=== PATIENT | female | born 1990 | race Two or more races ===

== ENCOUNTER 2019-11-22 11:51 | Emergency (ER) | payer BC, OTHER ==
[~2019-11-22] VITALS: Ht 180.3 cm; Wt 95.7 kg
[2019-11-22 14:43] LABS: Basophils # (auto) 0 10 ^3/uL (0-0.2); Basophils % (auto) 0.4 % (0.0-2.0); Eosinophils # (auto) 0.2 10 ^3/uL (0-0.8); Eosinophils % (auto) 2.1 % (0.0-7.0); Hematocrit 44.5 % (36.0-46.0); Hemoglobin 14.6 g/dL (12.2-16.2); Lymphocytes # (auto) 2.5 10 ^3/uL (0.4-5.4); Lymphocytes % (auto) 25.2 % (10.0-50.0); Mean Corpuscular Hemoglobin 27.7 pg (28.0-32.0); Mean Corpuscular Hgb Conc. 32.8 g/dL (32.0-36.0); Mean Corpuscular Volume 84.6 fL (80.0-100.0); Monocytes # (auto) 0.6 10 ^3/uL (0-1.3); Monocytes % (auto) 6.3 % (0.0-12.0); Neutrophils # (auto) 6.5 10 ^3/uL (1.6-8.6); Platelet Count (auto) 373 10^3/uL (140-450); Red Blood Cells 5.27 10^6/uL (4.0-5.20); White Blood Cell 9.9 10^3/uL (4.4-10.8)
[2019-11-22] MEDS ORDERED: NALOXONE HCL 0.4 MG/ML VIAL IV ONE (14:45)
[2019-11-22 14:57] LABS: Albumin 3.6 g/dL (3.4-5.0); Calcium 8.7 mg/dL (8.5-10.1); Potassium 3.9 mmol/L (3.5-5.1)
[2019-11-22 15:02] LABS: BUN/Creatinine Ratio 8.5; Bilirubin, Total 0.5 mg/dL (0.2-1.0); Total Protein 7.4 g/dL (6.4-8.2)
[2019-11-22] MEDS ORDERED: SODIUM CHLORIDE 0.9% 1,000 ML IVB ONE (15:04)
[2019-11-22] MEDS ORDERED: PROMETHAZINE HCL 25 MG/ML 1ML IV PRN (15:15)
[2019-11-22 15:58] LABS: INR 1.05 (0.9-1.15)
[2019-11-22 19:49] VITALS: BP 102/60
== END 2019-11-22 22:13 | disposition home or self-care (01) ==
LOC: ER 11:51
DX: T78.40XA Allergy, unspecified, initial encounter (principal); R11.2 Nausea with vomiting, unspecified; N64.4 Mastodynia
CPT/HCPCS: 36415; 71045; 76642; 80053; 83735; 84702; 85025; 85610; 85730; 96374; 99285; J2550

== ENCOUNTER 2020-01-18 18:40 | Emergency (ER) | payer OTHER ==
[~2020-01-18] VITALS: Ht 157.5 cm; Wt 95.7 kg
[2020-01-18 19:00] VITALS: BP 120/76
[2020-01-18] MEDS ORDERED: SODIUM CHLORIDE 0.9% 1,000 ML IV ONE (19:15)
[2020-01-18] MEDS ORDERED: KETOROLAC TROMETH 30 MG/ML 1ML VIAL IV ONE (19:15)
[2020-01-18 20:47] LABS: Urine Amorphous Crystal FEW /hpf (None Seen); Urine Bacteria FEW /hpf (None Seen); Urine Blood Negative /uL (Negative); Urine Mucus FEW (None Seen); Urine Specific Gravity 1.022 (1.001-1.035); Urine WBC 16 /hpf (0 - 5); Urine WBC Clumps PRESENT /hpf (None Seen)
== END 2020-01-18 22:14 | disposition still patient (30) ==
LOC: ER 18:41
DX: U07.1 COVID-19 (principal)
CPT/HCPCS: 71045; 81001; 81025; 96361; 96374; 99284; J1885; J7030; 96360

== ENCOUNTER 2020-10-15 21:40 | Inpatient (IN) | payer MEDICAID, OTHER ==
[~2020-10-15] VITALS: Ht 30.5 cm; Wt 91.0 kg
[2020-10-16] MEDS ORDERED: DOXYCYCLINE 100 MG TAB/CAP PO ONE
[2020-10-16] MEDS ORDERED: SODIUM CHLORIDE 0.9% 1,000 ML IV ONE
[2020-10-16] MEDS ORDERED: ACETAMINOPHEN 325 MG TAB PO ONE
[2020-10-16] MEDS ORDERED: cefTRIAXone 1GM/50ML D5W 50 ML IV ONE
[2020-10-16 00:24] LABS: Basophils # (auto) 0 10 ^3/uL (0-0.2); Basophils % (auto) 0.2 % (0.0-2.0); Eosinophils # (auto) 0 10 ^3/uL (0-0.8); Hemoglobin 16.1 g/dL (12.2-16.2); Lymphocytes # (auto) 1.6 10 ^3/uL (0.4-5.4); Lymphocytes % (auto) 24.8 % (10.0-50.0); Mean Corpuscular Hemoglobin 28.6 pg (28.0-32.0); Mean Corpuscular Volume 81.8 fL (80.0-100.0); Monocytes # (auto) 0.5 10 ^3/uL (0-1.3); Monocytes % (auto) 8.1 % (0.0-12.0); Neutrophils # (auto) 4.2 10 ^3/uL (1.6-8.6); Neutrophils % (auto) 66.9 % (37.0-80.0); Red Blood Cells 5.62 10^6/uL (4.0-5.20); Red Cell Distribution Width 13.6 % (11.8-14.3); White Blood Cell 6.3 10^3/uL (4.4-10.8)
[2020-10-16 00:39] LABS: Albumin 3.1 g/dL (3.4-5.0); Anion Gap 6 (5-15); BUN/Creatinine Ratio 11.3; Blood Urea Nitrogen 9 mg/dL (7-18); Carbon Dioxide 27 mmol/L (21-32); Chloride 98 mmol/L (98-107); GFR African American 109 mL/min; GFR Non-African American 90 mL/min; Glucose 94 mg/dL (74-106); Sodium 131 mmol/L (136-145)
[2020-10-16 00:41] LABS: INR 1.04 (0.9-1.15)
[2020-10-16 00:48] LABS: Alanine Aminotransferase 67 U/L (13-56); Alkaline Phosphatase 87 U/L (45-117); Aspartate Aminotransferase 50 U/L (15-37); Bilirubin, Total 0.4 mg/dL (0.2-1.0); Total Protein 7.4 g/dL (6.4-8.2)
[2020-10-16] MEDS ORDERED: POTASSIUM CHL 20 Meq TABLET PO ONE ×2 (01:15→08:45)
[2020-10-16] MEDS ORDERED: NITROGLYCERIN 0.4 MG SL TAB SL PRN (07:00)
[2020-10-16] MEDS ORDERED: DOCUSATE SOD 100 MG CAP PO PRN (07:00)
[2020-10-16] MEDS ORDERED: ONDANSETRON HCL 4 MG/2 ML VIAL IV PRN (07:00)
[2020-10-16] MEDS ORDERED: MORPHINE SULF INJ 2 MG/ML SYRINGE 1ML IV PRN (07:00)
[2020-10-16 07:44] LABS: Basophils # (auto) 0 10 ^3/uL (0-0.2); Basophils % (auto) 0.8 % (0.0-2.0); Eosinophils # (auto) 0 10 ^3/uL (0-0.8); Eosinophils % (auto) 0.1 % (0.0-7.0); Hematocrit 42.7 % (36.0-46.0); Hemoglobin 14.8 g/dL (12.2-16.2); Lymphocytes # (auto) 1.8 10 ^3/uL (0.4-5.4); Lymphocytes % (auto) 32.6 % (10.0-50.0); Mean Corpuscular Hemoglobin 28.3 pg (28.0-32.0); Mean Corpuscular Hgb Conc. 34.6 g/dL (32.0-36.0); Mean Corpuscular Volume 81.8 fL (80.0-100.0); Monocytes # (auto) 0.5 10 ^3/uL (0-1.3); Monocytes % (auto) 8.9 % (0.0-12.0); Neutrophils # (auto) 3.2 10 ^3/uL (1.6-8.6); Neutrophils % (auto) 57.6 % (37.0-80.0); Nucleated Red Blood Cells % 0.1 %; Red Blood Cells 5.22 10^6/uL (4.0-5.20); Red Cell Distribution Width 13.8 % (11.8-14.3); White Blood Cell 5.5 10^3/uL (4.4-10.8)
[2020-10-16 07:54] LABS: Albumin 2.8 g/dL (3.4-5.0); Calcium 7.7 mg/dL (8.5-10.1)
[2020-10-16 07:57] LABS: Bilirubin, Total 0.4 mg/dL (0.2-1.0); Total Protein 6.7 g/dL (6.4-8.2)
[2020-10-16] MEDS: cefTRIAXone 1GM/50ML D5W 50 ML IV SCH (08:27)
[2020-10-16] MEDS: AZITHROMYCIN 500MG/ 250ML 250 ML IV SCH (10:24)
[2020-10-16] MEDS: ENOXAPARIN SOD 40 MG/0.4 ML SYRINGE SC SCH (10:24)
[2020-10-16] MEDS: MULTIPLE VITAMIN TAB PO SCH (10:25)
[2020-10-16] MEDS: FAMOTIDINE 20 MG TAB PO SCH (10:25)
[2020-10-16] MEDS: ASCORBIC ACID 500 MG TAB PO SCH ×2 (10:25→22:26)
[2020-10-16] MEDS: ZINC SULFATE 220mg CAP or TAB PO SCH (10:25)
[2020-10-16] MEDS: IBUPROFEN 600 MG TAB PO PRN (10:40)
[2020-10-16] MEDS ORDERED: DexAMETHasone SOD PHOS 10MG/1ML VIAL INJ IV ONE (13:30)
[2020-10-16] MEDS: POTASSIUM CHL 20MEQ/100ML 100 ML IV SCH ×2 (13:30→15:30)
[2020-10-16] MEDS ORDERED: REMDESIVIR PER PHARMACY 0 ML IV SCH (13:30)
[2020-10-16] MEDS ORDERED: REMDESIVIR 200 MG in NS 210ml LOADING DOSE ADULT IV ONE (15:00)
[2020-10-16] MEDS: IVERMECTIN 3 MG TAB PO SCH (16:16)
[2020-10-16 16:42] VITALS: BP 107/65
[2020-10-16 16:59] VITALS: BP 107/65
[2020-10-16 22:00] VITALS: BP 113/66
[2020-10-16] MEDS: guaiFENesin-DM 100/10mg/5ml SYR PO PRN (22:26)
[2020-10-17 05:00] VITALS: BP 112/71
[2020-10-17 06:27] LABS: Basophils # (auto) 0 10 ^3/uL (0-0.2); Basophils % (auto) 0.3 % (0.0-2.0); Eosinophils # (auto) 0 10 ^3/uL (0-0.8); Hematocrit 41.3 % (36.0-46.0); Hemoglobin 14.6 g/dL (12.2-16.2); Lymphocytes # (auto) 0.7 10 ^3/uL (0.4-5.4); Lymphocytes % (auto) 30.4 % (10.0-50.0); Mean Corpuscular Hemoglobin 28.9 pg (28.0-32.0); Mean Corpuscular Hgb Conc. 35.3 g/dL (32.0-36.0); Mean Corpuscular Volume 81.8 fL (80.0-100.0); Monocytes # (auto) 0.3 10 ^3/uL (0-1.3); Monocytes % (auto) 11.2 % (0.0-12.0); Neutrophils # (auto) 1.3 10 ^3/uL (1.6-8.6); Neutrophils % (auto) 58.1 % (37.0-80.0); Nucleated Red Blood Cells % 0.1 %; Red Blood Cells 5.05 10^6/uL (4.0-5.20); Red Cell Distribution Width 13.5 % (11.8-14.3); White Blood Cell 2.2 10^3/uL (4.4-10.8)
[2020-10-17 06:50] LABS: Albumin 2.9 g/dL (3.4-5.0); BUN/Creatinine Ratio 16.7; Calcium 8.3 mg/dL (8.5-10.1); Potassium 3.4 mmol/L (3.5-5.1)
[2020-10-17 06:53] LABS: Bilirubin, Total 0.4 mg/dL (0.2-1.0); Total Protein 7.2 g/dL (6.4-8.2)
[2020-10-17 08:38] VITALS: BP 105/57
[2020-10-17] MEDS: cefTRIAXone 1GM/50ML D5W 50 ML IV SCH (08:55)
[2020-10-17] MEDS: DexAMETHasone SOD PHOS 10MG/1ML VIAL INJ IV SCH (08:55)
[2020-10-17] MEDS: ZINC SULFATE 220mg CAP or TAB PO SCH (08:55)
[2020-10-17] MEDS: MULTIPLE VITAMIN TAB PO SCH (08:55)
[2020-10-17] MEDS: ENOXAPARIN SOD 40 MG/0.4 ML SYRINGE SC SCH (08:56)
[2020-10-17] MEDS: guaiFENesin-DM 100/10mg/5ml SYR PO PRN ×2 (08:56→21:27)
[2020-10-17] MEDS: ASCORBIC ACID 500 MG TAB PO SCH ×2 (08:56→21:26)
[2020-10-17] MEDS: FAMOTIDINE 20 MG TAB PO SCH (08:56)
[2020-10-17] MEDS: IVERMECTIN 3 MG TAB PO SCH (09:48)
[2020-10-17] MEDS: AZITHROMYCIN 500MG/ 250ML 250 ML IV SCH ×2 (10:22→14:56)
[2020-10-17 12:22] VITALS: BP 115/67
[2020-10-17] MEDS: REMDESIVIR 100mg 100 MG in SODIUM CHL 0.9% 230 ML IV SCH (14:58)
[2020-10-17 16:31] VITALS: BP 113/72
[2020-10-17] MEDS: IBUPROFEN 600 MG TAB PO PRN (21:27)
[2020-10-17 22:12] VITALS: BP 98/60
[2020-10-18 05:09] VITALS: BP 118/68
[2020-10-18 06:29] LABS: Basophils # (auto) 0 10 ^3/uL (0-0.2); Basophils % (auto) 0.1 % (0.0-2.0); Eosinophils # (auto) 0 10 ^3/uL (0-0.8); Hematocrit 42.6 % (36.0-46.0); Hemoglobin 14.7 g/dL (12.2-16.2); Lymphocytes % (auto) 11.5 % (10.0-50.0); Mean Corpuscular Hemoglobin 28.6 pg (28.0-32.0); Mean Corpuscular Hgb Conc. 34.6 g/dL (32.0-36.0); Mean Corpuscular Volume 82.7 fL (80.0-100.0); Monocytes # (auto) 0.7 10 ^3/uL (0-1.3); Monocytes % (auto) 7.7 % (0.0-12.0); Neutrophils # (auto) 7.3 10 ^3/uL (1.6-8.6); Neutrophils % (auto) 80.7 % (37.0-80.0); Nucleated Red Blood Cells % 0.1 %; Red Blood Cells 5.15 10^6/uL (4.0-5.20); Red Cell Distribution Width 13.5 % (11.8-14.3)
[2020-10-18 06:44] LABS: Albumin 2.9 g/dL (3.4-5.0); Calcium 8.5 mg/dL (8.5-10.1); Potassium 3.3 mmol/L (3.5-5.1)
[2020-10-18 06:55] LABS: Bilirubin, Total 0.3 mg/dL (0.2-1.0); Total Protein 6.9 g/dL (6.4-8.2)
[2020-10-18 08:10] VITALS: BP 100/60
[2020-10-18] MEDS: cefTRIAXone 1GM/50ML D5W 50 ML IV SCH (08:54)
[2020-10-18] MEDS: IVERMECTIN 3 MG TAB PO SCH (08:55)
[2020-10-18] MEDS: DexAMETHasone SOD PHOS 10MG/1ML VIAL INJ IV SCH (08:55)
[2020-10-18] MEDS: ZINC SULFATE 220mg CAP or TAB PO SCH (08:55)
[2020-10-18] MEDS: FAMOTIDINE 20 MG TAB PO SCH (08:55)
[2020-10-18] MEDS: ASCORBIC ACID 500 MG TAB PO SCH ×2 (08:55→21:32)
[2020-10-18] MEDS: ENOXAPARIN SOD 40 MG/0.4 ML SYRINGE SC SCH (08:56)
[2020-10-18 09:00] VITALS: BP 100/60
[2020-10-18] MEDS: guaiFENesin-DM 100/10mg/5ml SYR PO PRN ×2 (09:26→21:32)
[2020-10-18] MEDS: MULTIPLE VITAMIN TAB PO SCH (09:30)
[2020-10-18] MEDS: AZITHROMYCIN 500MG/ 250ML 250 ML IV SCH (09:30)
[2020-10-18] MEDS ORDERED: POTASSIUM EFFERVESENT TAB 25 MEQ PO ONE (11:00)
[2020-10-18 13:00] VITALS: BP 100/55
[2020-10-18] MEDS: REMDESIVIR 100mg 100 MG in SODIUM CHL 0.9% 230 ML IV SCH (14:56)
[2020-10-18 17:00] VITALS: BP 101/58
[2020-10-18] MEDS: IBUPROFEN 600 MG TAB PO PRN (21:32)
[2020-10-18 22:00] VITALS: BP 106/61
[2020-10-19 05:18] VITALS: BP 107/55
[2020-10-19 07:26] LABS: Potassium 3.2 mmol/L (3.5-5.1)
[2020-10-19 07:44] LABS: Albumin 2.6 g/dL (3.4-5.0); BUN/Creatinine Ratio 27.9; Bilirubin, Total 0.4 mg/dL (0.2-1.0); Calcium 8.8 mg/dL (8.5-10.1); Total Protein 6.5 g/dL (6.4-8.2)
[2020-10-19 08:00] VITALS: BP 130/73
[2020-10-19 09:00] VITALS: BP 97/58
[2020-10-19] MEDS: cefTRIAXone 1GM/50ML D5W 50 ML IV SCH (09:24)
[2020-10-19] MEDS: ZINC SULFATE 220mg CAP or TAB PO SCH (09:26)
[2020-10-19] MEDS: AZITHROMYCIN 500MG/ 250ML 250 ML IV SCH (09:26)
[2020-10-19] MEDS: DexAMETHasone SOD PHOS 10MG/1ML VIAL INJ IV SCH (09:26)
[2020-10-19] MEDS: FAMOTIDINE 20 MG TAB PO SCH (09:27)
[2020-10-19] MEDS: IVERMECTIN 3 MG TAB PO SCH (09:27)
[2020-10-19] MEDS: MULTIPLE VITAMIN TAB PO SCH (09:27)
[2020-10-19] MEDS: ASCORBIC ACID 500 MG TAB PO SCH ×2 (09:28→21:55)
[2020-10-19] MEDS: ENOXAPARIN SOD 40 MG/0.4 ML SYRINGE SC SCH (09:28)
[2020-10-19 13:00] VITALS: BP 96/64
[2020-10-19] MEDS ORDERED: POTASSIUM CHLORIDE 60 MEQ, LIDOCAINE 1% (LOCAL ANESTH.) 6 ML in SODIUM CHL 0.9% 500 ML IV ONE (13:45)
[2020-10-19] MEDS: REMDESIVIR 100mg 100 MG in SODIUM CHL 0.9% 230 ML IV SCH (16:24)
[2020-10-19 17:00] VITALS: BP 88/46
[2020-10-19] MEDS: guaiFENesin-DM 100/10mg/5ml SYR PO PRN (21:56)
[2020-10-19 22:00] VITALS: BP 121/76
[2020-10-20 05:00] VITALS: BP 125/72
[2020-10-20 06:24] LABS: Basophils # (auto) 0 10 ^3/uL (0-0.2); Basophils % (auto) 0.1 % (0.0-2.0); Eosinophils # (auto) 0 10 ^3/uL (0-0.8); Eosinophils % (auto) 0.1 % (0.0-7.0); Hematocrit 39.7 % (36.0-46.0); Hemoglobin 13.7 g/dL (12.2-16.2); Lymphocytes # (auto) 1.5 10 ^3/uL (0.4-5.4); Lymphocytes % (auto) 17.4 % (10.0-50.0); Mean Corpuscular Hemoglobin 28.3 pg (28.0-32.0); Mean Corpuscular Hgb Conc. 34.5 g/dL (32.0-36.0); Mean Corpuscular Volume 82.2 fL (80.0-100.0); Monocytes % (auto) 11.1 % (0.0-12.0); Neutrophils # (auto) 6.2 10 ^3/uL (1.6-8.6); Neutrophils % (auto) 71.3 % (37.0-80.0); Nucleated Red Blood Cells % 0.1 %; Red Blood Cells 4.83 10^6/uL (4.0-5.20); Red Cell Distribution Width 13.6 % (11.8-14.3); White Blood Cell 8.6 10^3/uL (4.4-10.8)
[2020-10-20 06:46] LABS: Albumin 2.5 g/dL (3.4-5.0); Calcium 8.1 mg/dL (8.5-10.1); Potassium 3.9 mmol/L (3.5-5.1)
[2020-10-20 06:51] LABS: BUN/Creatinine Ratio 26.3; Bilirubin, Total 0.4 mg/dL (0.2-1.0); Total Protein 6.2 g/dL (6.4-8.2)
[2020-10-20 09:00] VITALS: BP 109/71
[2020-10-20] MEDS: cefTRIAXone 1GM/50ML D5W 50 ML IV SCH (11:19)
[2020-10-20] MEDS: DexAMETHasone SOD PHOS 10MG/1ML VIAL INJ IV SCH (11:19)
[2020-10-20] MEDS: ASCORBIC ACID 500 MG TAB PO SCH ×2 (11:20→21:01)
[2020-10-20] MEDS: FAMOTIDINE 20 MG TAB PO SCH (11:20)
[2020-10-20] MEDS: ZINC SULFATE 220mg CAP or TAB PO SCH (11:20)
[2020-10-20] MEDS: AZITHROMYCIN 500MG/ 250ML 250 ML IV SCH (11:20)
[2020-10-20] MEDS: MULTIPLE VITAMIN TAB PO SCH (11:20)
[2020-10-20] MEDS: IVERMECTIN 3 MG TAB PO SCH (11:20)
[2020-10-20] MEDS: ENOXAPARIN SOD 40 MG/0.4 ML SYRINGE SC SCH (11:21)
[2020-10-20 13:00] VITALS: BP 98/59
[2020-10-20] MEDS: REMDESIVIR 100mg 100 MG in SODIUM CHL 0.9% 230 ML IV SCH (15:42)
[2020-10-20 17:00] VITALS: BP 106/65
[2020-10-20] MEDS: IBUPROFEN 600 MG TAB PO PRN (21:11)
[2020-10-20 22:00] VITALS: BP 108/68
[2020-10-21] MEDS: cefTRIAXone 1GM/50ML D5W 50 ML IV SCH ×2 (02:59→10:20)
[2020-10-21 05:00] VITALS: BP 104/64
[2020-10-21 07:01] LABS: BUN/Creatinine Ratio 19.6; Calcium 8.6 mg/dL (8.5-10.1); Potassium 3.9 mmol/L (3.5-5.1)
[2020-10-21 09:00] VITALS: BP 110/65
[2020-10-21] MEDS: ZINC SULFATE 220mg CAP or TAB PO SCH (10:20)
[2020-10-21] MEDS: ASCORBIC ACID 500 MG TAB PO SCH (10:20)
[2020-10-21] MEDS: MULTIPLE VITAMIN TAB PO SCH (10:20)
[2020-10-21] MEDS: FAMOTIDINE 20 MG TAB PO SCH (10:20)
[2020-10-21] MEDS: DexAMETHasone SOD PHOS 10MG/1ML VIAL INJ IV SCH (10:20)
[2020-10-21] MEDS: ENOXAPARIN SOD 40 MG/0.4 ML SYRINGE SC SCH (10:21)
[2020-10-21] MEDS ORDERED: ASCO500T11 PO (12:40)
[2020-10-21] MEDS ORDERED: ERGO20002 PO (12:40)
[2020-10-21 13:00] VITALS: BP 107/68
[2020-10-21] MEDS: AZITHROMYCIN 500MG/ 250ML 250 ML IV SCH (13:33)
[2020-10-21 15:59] VITALS: BP 107/68
== END 2020-10-21 18:55 | disposition home or self-care (01) | DRG 137 ==
LOC: ER 21:40 → OVERFLOW 10-16 07:01 → EAST 10-16 15:32
PROVIDERS: ADMIT Nurse Practitioner Family; ATTEND Internal Medicine Pulmonary Disease
PROC: XW033E5 Introduction of Remdesivir Anti-infective into Peripheral Vein, Percutaneous Approach, New Technology Group 5 (ICD-10-PCS; principal; 2020-10-16)
DX: U07.1 COVID-19 (principal); J96.01 Acute respiratory failure with hypoxia; J12.82 Pneumonia due to coronavirus disease 2019; E87.1 Hypo-osmolality and hyponatremia; E88.09 Other disorders of plasma-protein metabolism, not elsewhere classified; J45.901 Unspecified asthma with (acute) exacerbation; E86.0 Dehydration; E87.6 Hypokalemia; Z90.49 Acquired absence of other specified parts of digestive tract; Z88.5 Allergy status to narcotic agent; Z88.8 Allergy status to other drugs, medicaments and biological substances
CPT/HCPCS: 36415; 71045; 80048; 80053; 84484; 84702; 85025; 85379; 85610; 85730; 87426; 96365; 96366; G0378; J0696; J1100; J2001